=== PATIENT | female | born 1965 | race Two or more races ===

== ENCOUNTER 2016-08-03 19:35 | Inpatient (IN) | payer BC ==
[~2016-08-03] VITALS: Ht 170.2 cm; Wt 48.1 kg
[~2016-08-03 19:35] MED LIST: ATIVAN0.5 M1; LAC PO; LEVAQUIN750 MG PO; TYLENOL EXTRA500 M2; ZOF4
[2016-08-04 00:02] LABS: BASOPHIL % 0.5 % (0-2)
[2016-08-04 00:05] LABS: PLATELET COUNT 456 x10^3mcL (130-400)
[2016-08-04 00:25] LABS: CALCIUM 8.3 mg/dL (8.5-10.1); CARBON DIOXIDE 26.3 mmol/L (21-32); CHLORIDE SERUM 99 mmol/L (98-107); CREATININE SERUM 0.8 mg/dL (0.6-1.0); GFR1 > 60 mL/min; GLUCOSE SERUM 126 mg/dL (74-106); POTASSIUM SERUM 3.2 mmol/L (3.5-5.1); SODIUM SERUM 138 mmol/L (136-145)
[2016-08-04 00:30] LABS: ALBUMIN 2.1 g/dL (3.4-5.0); ALKALINE PHOSPHATASE 92 U/L (46-116); ALT/SGPT 12 U/L (14-59); AST/SGOT 47 U/L (15-37); BILIRUBIN TOTAL 0.4 mg/dL (0.20-1.00); LIPASE 118 IU/L (73-393); TOTAL PROTEIN, SERUM 6.6 g/dL (6.4-8.2)
[2016-08-04 00:42] LABS: UA SPECIFIC GRAVITY 1.015 (1.005-1.035); microscopic required? YES; urine erythrocyte NEGATIVE (NEGATIVE)
[2016-08-04 00:58] LABS: AMPHETAMINE QUAL UR NONE DETECTED (NEG <=1000)
[2016-08-04 01:15] LABS: MAGNESIUM 2.1 mg/dL (1.8-2.4); PHOSPHOROUS 5.4 mg/dL (2.5-4.9)
[2016-08-04 01:24] LABS: T3 TOTAL 0.96 ng/mL
[2016-08-04] MEDS ORDERED: ZOF4 (01:24)
[2016-08-04] MEDS ORDERED: ATIVAN0.5 M1 (01:24)
[2016-08-04] MEDS ORDERED: DILAUDID2 MG (01:24)
[2016-08-04 01:33] LABS: CHOLESTEROL/HDL RATIO 2.6
[2016-08-04 01:44] LABS: FREE T4 1.5 ng/dL (0.76-1.46); FREE THYROXINE INDEX 3.5 ug/dL (1.4-4.5); T4(THYROXINE) 10.4 ug/dL (4.7-13.3)
[2016-08-04 02:54] VITALS: BP 127/81
[2016-08-04 06:02] VITALS: BP 120/78
[2016-08-04 09:32] VITALS: BP 106/68
[2016-08-04 09:51] VITALS: BP 106/68
[2016-08-04 17:15] VITALS: BP 165/75
[2016-08-04 20:35] VITALS: BP 126/75
[2016-08-05 05:57] LABS: BASOPHIL % 0.6 % (0-2); PLATELET COUNT 343 x10^3mcL (130-400)
[2016-08-05 06:01] VITALS: BP 110/67
[2016-08-05 06:41] LABS: CARBON DIOXIDE 29.4 mmol/L (21-32); CHLORIDE SERUM 104 mmol/L (98-107); CREATININE SERUM 0.7 mg/dL (0.6-1.0); GFR1 > 60 mL/min; GLUCOSE SERUM 89 mg/dL (74-106); MAGNESIUM 1.7 mg/dL (1.8-2.4); POTASSIUM SERUM 3.6 mmol/L (3.5-5.1); SODIUM SERUM 140 mmol/L (136-145)
[2016-08-05 06:55] LABS: RED CELL DISTRIBUTION WIDTH 15.1 % (11.5-14.5)
[2016-08-05] MEDS ORDERED: AMITIZA24 MC1 PO (09:28)
[2016-08-05 09:43] VITALS: BP 118/76
[2016-08-05] MEDS ORDERED: RELISTOR150 MG PO (09:48)
[2016-08-05 12:17] VITALS: Ht 170.2 cm; Wt 48.1 kg
[2016-08-05] MEDS ORDERED: TYLENOL EXTRA500 M3 (12:45)
[2016-08-05 12:47] VITALS: BP 118/76
[2016-08-05] MEDS ORDERED: LAC PO (13:36)
[2016-08-05] MEDS ORDERED: MAC100 PO (13:36)
[2016-08-05 13:54] VITALS: BP 112/71
[2016-08-05] MEDS ORDERED: PHEDML PO (14:36)
== END 2016-08-05 15:39 | disposition home or self-care (01) | DRG 391 ==
LOC: ED 19:35 → MU 08-04 00:12 → DU 08-04 00:12 → MU 08-04 09:40
PROVIDERS: Emergency Medicine; ADMIT Family Medicine
DX: K59.00 Constipation, unspecified (principal); N17.0 Acute kidney failure with tubular necrosis; E43 Unspecified severe protein-calorie malnutrition; N39.0 Urinary tract infection, site not specified; R64 Cachexia; C56.9 Malignant neoplasm of unspecified ovary; E87.6 Hypokalemia; E83.39 Other disorders of phosphorus metabolism; M62.50 Muscle wasting and atrophy, not elsewhere classified, unspecified site; Z85.43 Personal history of malignant neoplasm of ovary; Z90.710 Acquired absence of both cervix and uterus; Z90.79 Acquired absence of other genital organ(s); D64.9 Anemia, unspecified; G89.3 Neoplasm related pain (acute) (chronic); Z80.42 Family history of malignant neoplasm of prostate; Z83.3 Family history of diabetes mellitus; Z82.49 Family history of ischemic heart disease and other diseases of the circulatory system
CPT/HCPCS: 82962; 83880; 84439; J0696; J1170; J1644; J2212; J2405; J2550; J3010; J3480; J7030; J7040; Q0092; Q9958; Q9963; Q9966; Q9967